=== PATIENT | male | born 1965 | race Caucasian/White ===

== ENCOUNTER → 2019-08-21 12:49 | Outpatient (BNVA) | payer MEDICAID, SELFPAY | PROVIDERS: Family Provider Nurse Practitioner Family; Visit Provider Nurse Practitioner | DX: F20.89 Other schizophrenia (principal) | CPT/HCPCS: 99213 ==

== ENCOUNTER → 2019-11-13 08:17 | Outpatient (BNVA) | payer MEDICAID, SELFPAY | PROVIDERS: Family Provider Nurse Practitioner Family; Visit Provider Nurse Practitioner | DX: F20.89 Other schizophrenia (principal) | CPT/HCPCS: 99214 ==

== ENCOUNTER → 2020-02-05 07:52 | Outpatient (BNVA) | payer MEDICAID, SELFPAY | PROVIDERS: Family Provider Nurse Practitioner Family; Visit Provider Nurse Practitioner | DX: F20.89 Other schizophrenia (principal) | CPT/HCPCS: 99214 ==

== ENCOUNTER 2020-03-23 17:05 | Inpatient (IN) | payer MEDICAID, SELFPAY ==
[2020-03-23] VITALS (13 sets, daily range): BP systolic 102–159; BP diastolic 61–111; PULSE 85–106; RESP 16–41; TEMP 36.6–37; O2SAT 90–99; BMI 32.1
--- NOTE | 2020-03-23 17:10 | XRR_ITS ---
PROCEDURE INFORMATION: Exam: XR Chest, 1 View Exam date and time: 03/23/2020 5:12 PM Age: 54 years old Clinical indication: Other: Od; Additional info: Overdose TECHNIQUE: Imaging protocol: XR of the chest Views: 1 view. COMPARISON: CR Chest 1 [place] [id number] 03/19/2017 1:40 PM FINDINGS: Lungs: Unremarkable. No consolidation. Unchanged mild basilar fibrosis. Pleural space: Unremarkable. No pleural effusion. No pneumothorax. Heart/Mediastinum: Unchanged mild cardiomegaly. Bones/joints: No acute abnormality. XR/XR chest 1V portable [id number] IMPRESSION: No acute findings.
--- NOTE | 2020-03-23 17:11 | ECG_ITS ---
[facility] Test Date: 2020-03-23 Pat Name: Ishan Brower Department: Room: Gender: Male Title I Teacher: : 1965 Requested By: Ghazal Henderson Order Number: [id number] José Luis MD: Rosaura Wick M.D. Measurements Intervals [place] Rate: 103 P: 57 DC: 140 QRS: 52 QRSD: 91 T: 1 QT: 342 QTc: 450 Interpretive Statements SINUS TACHYCARDIA POSSIBLE LEFT ATRIAL ENLARGEMENT [-0.1mV P WAVE IN V1/V2] POSSIBLE RIGHT VENTRICULAR CONDUCTION DELAY [RSR (QR) IN V1/V2] MODERATE ST DEPRESSION [0.05+ mV ST DEPRESSION] Compared to ECG 02/13/2017 04:04:58 ST (T wave) deviation now present Sinus bradycardia no longer present Sinus arrhythmia no longer present Left posterior fascicular block no longer present Electronically Signed On 03-23-2020 20:55:22 CDT by Rosaura Wick M.D. [id number] f
[2020-03-23 17:31] LABS: ABG PCO2 29.8 mmHg (35-45); ABG PH Result 7.45 (7.35-7.45); Alveolar-Arterial Oxygen Gradi 5.4 mmHg (5-10); Arterial Blood Gas Hematocrit 47.6 % (42-52); Base Excess ABG -1.9 mmol/L (-2.0-2.0); Blood Gas Allen Test Pos; Blood Gas Operator Identificat MONRO; Blood Gas Sample Site Radial, right; Blood Gas Sample Type Arterial; Carboxyhemoglobin 0.9 %THgb (0.4-20.1); HCO3 ABG 20.8 mmol/L (22-26); Ionized Calcium Level - ABG 1.2 mmol/L (1.1-1.4); Methemoglobin 0.7 % (0.4-1.5); Oxygen Device ROOM AIR; Oxygen Saturation ABG 95.5; PO2 ABG 69.3 mmHg (80.0-100.0); Potassium Level - ABG 3.1 mmol/L (3.5-5.0); Total Hemoglobin 15.5 g/dL (14-18)
--- NOTE | 2020-03-23 17:35 | ED_ITS ---
HPI - Overdose General: Chief Complaint: Overdose Stated Complaint: OVERDOSE Time Seen by Provider: 03/23/20 17:06 Source: patient and EMS Mode of arrival: EMS Limitations: no limitations History of Present Illness: HPI Narrative: Mr. Fox is a 54-year-old male who comes in after family called EMS because he was somnolent. Patient admits to taking 20 0.5 mg clonazepam's last night and 30 0.5 mg Klonopin tablets this morning. Patient is adamant he did not do this to hurt himself or kill himself he was solely trying to get high. Patient denies any other ingestions of any of his other medications. He states he is done this several times before and EMS confirms the family states he has done this before. Patient states he otherwise feels fine and has no complaints. Review of Systems Const: Denies: fever(s), chills, body aches, fatigue, malaise or diaphoresis Eyes: Denies: change in vision, blurry vision, photophobia, eye discomfort, eye discharge or eye redness ENMT: Denies: throat pain, odynophagia, hoarseness, swelling of lips/tongue, ear or mastoid pain, ear discharge, change in hearing or nasal discharge Card: Denies: chest pain, palpitations, irregular heart rhythm, edema, lightheadedness, syncope, pre-syncope, dyspnea on exertion or orthopnea Resp: Denies: dyspnea, productive cough, non-productive cough, wheezing, hemoptysis or chest congestion GI: Denies: abdominal pain, nausea, vomiting, hematemesis, coffee ground emesis, heartburn, diarrhea, constipation, GI cramping, hematochezia or melena : Denies: flank pain, dysuria, urinary frequency, urinary urgency or hematuria Musc: Denies: neck pain, back pain, extremity pain, extremity swelling, joint pain, joint swelling, joint redness, joint warmth or joint stiffness Skin/Breast: Denies: rash, pruritus, erythema or skin tenderness Neuro: Denies: headache(s), numbness in extremities, weakness in extremities, sensory changes, lack of coordination, difficulty walking, dizziness, vertigo, confusion, Slurred speech present or seizure-like activity Ezio/Lymph: Denies: easy bruising, easy bleeding, petechiae, purpura or enlarged lymph nodes All/Imm: Denies: urticaria, throat swelling, tongue swelling, facial swelling or acute wheezing PFSH ED PFSH: Medical History (Updated 03/23/20 @ 19:50 by Ghazal Bruce) Drug overdose Dyslipidemia Hypertension Other schizophrenia Surgical History (Updated 03/23/20 @ 19:42 by Renée Estrada MD) No pertinent past surgical history Family History (Updated 03/23/20 @ 19:43 by Renée Estrada MD) Other No pertinent family history Social History (Updated 03/23/20 @ 19:44 by Renée Estrada MD) Smoking and tobacco status: never smoked Alcohol intake: current Alcohol type: beer Alcohol use comment: 6 beers a week Substance/Drug Use: never Lives independently: Yes Housing: House Physical Exam Const: COMMON NORMALS: no acute distress, patient oriented x3, no limitations, healthy appearing and well nourished GENERAL APPEARANCE: cooperative, well kempt and well developed HENMT: COMMON NORMALS: normocephalic, atraumatic, external ears normal, EAC's normal and Normal external nose present HEAD & SCALP: normal to inspection, normocephalic and atraumatic FACE & SINUS: normal facial exam and face symmetric NOSE: Normal external nose present and Normal nares present EXTERNAL EAR: Yes external ears normal EXTERNAL AUDITORY CANAL: EAC's normal MOUTH: Normal oral and palatal mucosa present, lip normal and tongue normal Eye: COMMON NORMALS: Equal, round and reactive pupils present and conjunctivae normal GENERAL EYE: appearance normal, both eyes and all related structures ALIGNMENT: Yes alignment normal PERIORBITAL: periorbital findings normal EYELID: eyelids normal CONJUNCTIVA: Yes conjunctivae normal SCLERA: scle addi normal PUPIL: Yes Equal, round and reactive pupils present Neck/C-Spine: COMMON NORMALS: full ROM, no lymphadenopathy, supple, no meningeal signs and no JVD GENERAL: Yes normal visual inspection and Yes trachea midline Chest: COMMONS NORMALS: normal inspection of the chest and normal palpation of entire chest wall Resp: COMMON NORMALS: No retractions, No use of accessory muscles and clear to auscultation bilaterally EFFORT & INSPECTION: Yes able to speak in complete sentences, Yes symmetric chest movement and Yes tachypneic AUSCULTATION: clear to auscultation bilaterally, no crackles, no rales, no rhonchi and no wheezes Cardio: COMMON NORMALS: no JVD, regular rate, regular rhythm, S1 normal heart sound present and S2 normal heart sound present RATE: regular rate RHYTHM: regular rhythm HEART SOUNDS: S1 normal heart sound present, S2 normal heart sound present, no click, no gallops, no murmurs, no rubs and abnormal split S2 GI: COMMON NORMALS: Soft to palpation and No hepatosplenomegaly present PALPATION: Yes Soft to palpation, No Tenderness to palpation present (GI), No Guarding due to palpation present (GI), No Rigid due to palpation, Yes No hepatosplenomegaly present, No Hernia present, No Palpable mass present and No Pulsatile mass present : COMMON NORMALS: Yes no CVA tenderness BLADDER/KIDNEY EXAM: Yes no CVA tenderness Back/Pelvis: COMMON NORMALS: no CVA tenderness, thoracic and lumbar spine normal to inspection, no thoracic nor lumbar tenderness and thoraco-lumbar ROM normal Extremity: COMMON NORMALS: normal to inspection, full ROM, capillary refill normal, no joint enlargement, no clubbing, cyanosis or edema and no calf tenderness Neuro: COMMON NORMALS: patient oriented x3, CN's II-XII intact bilaterally, moves all extremities, no focal motor deficits and no sensory deficits noted MENINGEAL SIGNS: Yes no meningeal signs SPEECH: speech normal Psych: COMMON NORMALS: mental status grossly normal, Normal thought process present, cooperative, normal affect, speech normal and activity/motor behavior normal APPEARANCE: Yes well kempt SPEECH: Yes normal speech THOUGHT PROCESS: Normal thought process present Skin: COMMON NORMALS: no rashes or lesions noted, turgor normal, no jaundice, no petechiae and no mottling GENERAL SKIN EXAM: no rashes or lesions noted and turgor normal Course Vital Signs: Vital signs: Vital Signs Temperature 98.6 F 03/23/20 17:06 Pulse Rate 103 H 03/23/20 19:08 Respiratory Rate 26 H 03/23/20 19:08 Blood Pressure 109/82 03/23/20 19:08 Pulse Oximetry 95 03/23/20 19:08 MDM - Overdose MDM Narrative: Medical decision making narrative: Mr. Brower is a nice 54-year-old male who comes in after a overdose intentionally to intoxicate himself. Patient has developed rhabdomyolysis from this. His kidney function is already being affected. Given a bolus the patient with IV fluids as well as place a Cheng catheter to monitor strict intake and output. The case was reviewed with Dr. Estrada and he agrees to admit for further evaluation and care in the ICU Lab Data: Attestation: I reviewed the patient's lab results. Labs: Lab Results 03/23/20 03/23/20 03/23/20 Range/Units 16:09 16:09 16:09 WBC 14.8 H (4.0-10.0) 10^3/ uL RBC 4.50 (4.1-5.3) 10^6/u L Hgb 15.5 (11.7-16.6) g/dL Hct 44.3 (42.0-52.0) % MCV 98.4 H (80-94) fL MCH 34.4 H (28.0-34.0) pg MCHC 35.0 (30.0-36.0) g/dL RDW 11.9 L (12.1-15.1) % Plt Count 252 (130-400) 10^3/c mm MPV 10.8 H (7.4-10.4) fL Neut % (Auto) 85.5 % Lymph % (Auto) 5.3 % Schleicher % (Auto) 8.5 % Eos % (Auto) 0.1 % Baso % (Auto) 0.1 % Neut # (Auto) 12.64 H (1.8-7.7) 10^3/u L Lymph # (Auto) 0.8 (0.8-4.8) 10^3/u L Schleicher # (Auto) 1.3 H (0.2-0.9) 10^3/u L Eos # (Auto) 0.0 (0.0-0.8) 10^3/u L Baso # (Auto) 0.0 (0.0-0.1) 10^3/u L Nucleated RBC % (a uto) 0 % Nucleated RBCs # 0.0 /100WBC PT 14.30 (12.1-14.9) SECO NDS INR 1.08 (0.8-1.2) Specimen Type Sample Site ABG pH (7.35-7.45) ABG pCO2 (35-45) mmHg ABG pO2 (80.0-100.0) mmH g ABG HCO3 (22-26) mmol/L ABG O2 Saturation ABG Base Excess (-2.0-2.0) mmol/ L Jose Test A-a O2 Gradient (5-10) mmHg Hematocrit (42-52) % Hgb O2 Saturation (95-100) % Carboxyhemoglobin (0.4-20.1) %THgb Methemoglobin (0.4-1.5) % Total Hemoglobin (14-18) g/dL Ionized Calcium (1.1-1.4) mmol/L O2 Delivery Device FiO2 % Cad Librarian ID Sodium 136 (136-145) mmol/L Potassium 3.3 L (3.5-5.1) mmol/L Chloride 98 (98-107) mmol/L Carbon Dioxide 16 L (22-29) mmol/L Anion Gap 25.3 H (5-19) BUN 9 (6-20) mg/dL Creatinine 1.7 H (0.7-1.2) mg/dL GFR Calculation 41.9 L (90-130) mL/min Glucose 81 (65-115) mg/dL Calculated Osmolal ity 277 L (285-295) mOsm/k g Lactic Acid (0.5-2.2) mmol/L Calcium 9.3 (8.5-10.5) mg/dL Magnesium 1.9 (1.7-2.3) mg/dL Total Bilirubin 1.2 (0.15-1.2) mg/dL AST 122 H (0-40) U/L ALT 70 H (0-41) U/L Alkaline Phosphata se 136 H (40-130) IU/L Ammonia (16-60) umol/L Creatine Kinase 9792 H* (39-308) U/L Troponin T Baselin e (0-15) ng/L Total Protein 7.3 (6.6-8.7) g/dL Albumin 4.2 (3.5-5.2) g/dL Globulin 3.1 (1.3-4.6) g/dL TSH 1.63 (0.27-4.20) uIU/ mL Urine Color (Yellow) Urine Appearance (CLEAR) Urine pH (5-7) Ur Specific Gravit y (1.005-1.030) Urine Protein (Negative) Urine Glucose (UA) (Normal) Urine Ketones (Negative) Urine Blood (Negative) Urine Nitrate (Negative) Urine Bilirubin (NEGATIVE) Urine Urobilinogen (Negative) mg/dL Ur Leukocyte Shira ase (Negative) Urine RBC (0-2) /hpf Urine WBC (0-5) /hpf Ur Squamous Epith Cells (0-5) Amorphous Sediment Urine Bacteria (NONE) Hyaline Casts Fine Granular Cast s /lpf Urine Mucus Salicylates < 0.3 L (3-10) mg/dL Urine Opiates Scre en (Negative) ng/mL Acetaminophen < 5.0 L (10-30) ug/mL Ur Barbiturates Sc reen (Negative) ng/mL Phenytoin (10-20) ug/mL Valproic Acid (50-100) ug/mL Carbamazepine (4.0-12.0) ug/mL Ur Phencyclidine S crn (Negative) ng/mL Ur Amphetamines Sc reen (Negative) ng/mL U Benzodiazepines Scrn (Negative) ng/mL [place] (0.6-1.2) mmol/L Urine Cocaine Scre en (Negative) ng/mL U Marijuana (THC) Screen (Negative) ng/mL Ethyl Alcohol < 10 (0-10) mg/dL Serum Ketones Negative (Negative) 03/23/20 03/23/20 03/23/20 Range/Units 16:09 17:18 18:00 WBC (4.0-10.0) 10^3/ uL RBC (4.1-5.3) 10^6/u L Hgb (11.7-16.6) g/dL Hct (42.0-52.0) % MCV (80-94) fL MCH (28.0-34.0) pg MCHC (30.0-36.0) g/dL RDW (12.1-15.1) % Plt Count (130-400) 10^3/c mm MPV (7.4-10.4) fL Neut % (Auto) % Lymph % (Auto) % Schleicher % (Auto) % Eos % (Auto) % Baso % (Auto) % Neut # (Auto) (1.8-7.7) 10^3/u L Lymph # (Auto) (0.8-4.8) 10^3/u L Schleicher # (Auto) (0.2-0.9) 10^3/u L Eos # (Auto) (0.0-0.8) 10^3/u L Baso # (Auto) (0.0-0.1) 10^3/u L Nucleated RBC % (a uto) % Nucleated RBCs # /100WBC PT (12.1-14.9) SECO NDS INR (0.8-1.2) Specimen Type Arterial Sample Site Radial, right ABG pH 7.45 (7.35-7.45) ABG pCO2 29.8 L (35-45) mmHg ABG pO2 69.3 L (80.0-100.0) mmH g ABG HCO3 20.8 L (22-26) mmol/L ABG O2 Saturation 95.5 ABG Base Excess -1.9 (-2.0-2.0) mmol/ L Jose Test Pos A-a O2 Gradient 5.4 (5-10) mmHg Hematocrit 47.6 (42-52) % Hgb O2 Saturation 94.0 L (95-100) % Carboxyhemoglobin 0.9 (0.4-20.1) %THgb Methemoglobin 0.7 (0.4-1.5) % Total Hemoglobin 15.5 (14-18) g/dL Ionized Calcium 1.2 (1.1-1.4) mmol/L O2 Delivery Device Room air FiO2 21.0 % Cad Librarian ID [place] Sodium 140.0 (136-145) mmol/L Potassium 3.1 L (3.5-5.1) mmol/L Chloride (98-107) mmol/L Carbon Dioxide (22-29) mmol/L Anion Gap (5-19) BUN (6-20) mg/dL Creatinine (0.7-1.2) mg/dL GFR Calculation (90-130) mL/min Glucose 101.0 (65-115) mg/dL Calculated Osmolal ity (285-295) mOsm/k g Lactic Acid (0.5-2.2) mmol/L Calcium (8.5-10.5) mg/dL Magnesium (1.7-2.3) mg/dL Total Bilirubin (0.15-1.2) mg/dL AST (0-40) U/L ALT (0-41) U/L Alkaline Phosphata se (40-130) IU/L Ammonia (16-60) umol/L Creatine Kinase (39-308) U/L Troponin T Baselin e 46 H (0-15) ng/L Total Protein (6.6-8.7) g/dL Albumin (3.5-5.2) g/dL Globulin (1.3-4.6) g/dL TSH (0.27-4.20) uIU/ mL Urine Color (Yellow) Urine Appearance (CLEAR) Urine pH (5-7) Ur Specific Gravit y (1.005-1.030) Urine Protein (Negative) Urine Glucose (UA) (Normal) Urine Ketones (Negative) Urine Blood (Negative) Urine Nitrate (Negative) Urine Bilirubin (NEGATIVE) Urine Urobilinogen (Negative) mg/dL Ur Leukocyte Hsira ase (Negative) Urine RBC (0-2) /hpf Urine WBC (0-5) /hpf Ur Squamous Epith Cells (0-5) Amorphous Sediment Urine Bacteria (NONE) Hyaline Casts Fine Granular Cast s /lpf Urine Mucus Salicylates (3-10) mg/dL Urine Opiates Scre en Negative (Negative) ng/mL Acetaminophen (10-30) ug/mL Ur Barbiturates Sc reen Negative (Negative) ng/mL Phenytoin (10-20) ug/mL Valproic Acid (50-100) ug/mL Carbamazepine (4.0-12.0) ug/mL Ur Phencyclidine S crn Negative (Negative) ng/mL Ur Amphetamines Sc reen Negative (Negative) ng/mL U Benzodiazepines Scrn Positive H (Negative) ng/mL [place] (0.6-1.2) mmol/L Urine Cocaine Scre en Negative (Negative) ng/mL U Marijuana (THC) Screen Negative (Negative) ng/mL Ethyl Alcohol (0-10) mg/dL Serum Ketones (Negative) 03/23/20 03/23/20 03/23/20 Range/Units 18:00 18:06 18:06 WBC (4.0-10.0) 10^3/ uL RBC (4.1-5.3) 10^6/u L Hgb (11.7-16.6) g/dL Hct (42.0-52.0) % MCV (80-94) fL MCH (28.0-34.0) pg MCHC (30.0-36.0) g/dL RDW (12.1-15.1) % Plt Count (130-400) 10^3/c mm MPV (7.4-10.4) fL Neut % (Auto) % Lymph % (Auto) % Schleicher % (Auto) % Eos % (Auto) % Baso % (Auto) % Neut # (Auto) (1.8-7.7) 10^3/u L Lymph # (Auto) (0.8-4.8) 10^3/u L Schleicher # (Auto) (0.2-0.9) 10^3/u L Eos # (Auto) (0.0-0.8) 10^3/u L Baso # (Auto) (0.0-0.1) 10^3/u L Nucleated RBC % (a uto) % Nucleated RBCs # /100WBC PT (12.1-14.9) SECO NDS INR (0.8-1.2) Specimen Type Sample Site ABG pH (7.35-7.45) ABG pCO2 (35-45) mmHg ABG pO2 (80.0-100.0) mmH g ABG HCO3 (22-26) mmol/L ABG O2 Saturation ABG Base Excess (-2.0-2.0) mmol/ L Jose Test A-a O2 Gradient (5-10) mmHg Hematocrit (42-52) % Hgb O2 Saturation (95-100) % Carboxyhemoglobin (0.4-20.1) %THgb Methemoglobin (0.4-1.5) % Total Hemoglobin (14-18) g/dL Ionized Calcium (1.1-1.4) mmol/L O2 Delivery Device FiO2 % Cad Librarian ID Sodium (136-145) mmol/L Potassium (3.5-5.1) mmol/L Chloride (98-107) mmol/L Carbon Dioxide (22-29) mmol/L Anion Gap (5-19) BUN (6-20) mg/dL Creatinine (0.7-1.2) mg/dL GFR Calculation (90-130) mL/min Glucose (65-115) mg/dL Calculated Osmolal ity (285-295) mOsm/k g Lactic Acid (0.5-2.2) mmol/L Calcium (8.5-10.5) mg/dL Magnesium (1.7-2.3) mg/dL Total Bilirubin (0.15-1.2) mg/dL AST (0-40) U/L ALT (0-41) U/L Alkaline Phosphata se (40-130) IU/L Ammonia 38 (16-60) umol/L Creatine Kinase (39-308) U/L Troponin T Baselin e (0-15) ng/L Total Protein (6.6-8.7) g/dL Albumin (3.5-5.2) g/dL Globulin (1.3-4.6) g/dL TSH (0.27-4.20) uIU/ mL Urine Color Dark yellow (Yellow) Urine Appearance Clear (CLEAR) Urine pH 5 (5-7) Ur Specific Gravit y 1.010 (1.005-1.030) Urine Protein 1+ H (Negative) Urine Glucose (UA) Norm (Normal) Urine Ketones 1+ H (Negative) Urine Blood 3+ H (Negative) Urine Nitrate Negative (Negative) Urine Bilirubin Neg (NEGATIVE) Urine Urobilinogen Norm (Negative) mg/dL Ur Leukocyte Shira ase Negative (Negative) Urine RBC None (0-2) /hpf Urine WBC None (0-5) /hpf Ur Squamous Epith Cells Rare (0-5) Amorphous Sediment Not Reportable Urine Bacteria Trace (NONE) Hyaline Casts 5-10 H Fine Granular Cast s 5-10 H /lpf Urine Mucus 1+ Salicylates (3-10) mg/dL Urine Opiates Scre en (Negative) ng/mL Acetaminophen (10-30) ug/mL Ur Barbiturates Sc reen (Negative) ng/mL Phenytoin < 0.8 L (10-20) ug/mL Valproic Acid < 2.8 L (50-100) ug/mL Carbamazepine < 2.0 L (4.0-12.0) ug/mL Ur Phencyclidine S crn (Negative) ng/mL Ur Amphetamines Sc reen (Negative) ng/mL U Benzodiazepines Scrn (Negative) ng/mL [place] < 0.1 L (0.6-1.2) mmol/L Urine Cocaine Scre en (Negative) ng/mL U Marijuana (THC) Screen (Negative) ng/mL Ethyl Alcohol (0-10) mg/dL Serum Ketones (Negative) 03/23/20 Range/Units 18:06 WBC (4.0-10.0) 10^3/ uL RBC (4.1-5.3) 10^6/u L Hgb (11.7-16.6) g/dL Hct (42.0-52.0) % MCV (80-94) fL MCH (28.0-34.0) pg MCHC (30.0-36.0) g/dL RDW (12.1-15.1) % Plt Count (130-400) 10^3/c mm MPV (7.4-10.4) fL Neut % (Auto) % Lymph % (Auto) % Schleicher % (Auto) % Eos % (Auto) % Baso % (Auto) % Neut # (Auto) (1.8-7.7) 10^3/u L Lymph # (Auto) (0.8-4.8) 10^3/u L Schleicher # (Auto) (0.2-0.9) 10^3/u L Eos # (Auto) (0.0-0.8) 10^3/u L Baso # (Auto) (0.0-0.1) 10^3/u L Nucleated RBC % (a uto) % Nucleated RBCs # /100WBC PT (12.1-14.9) SECO NDS INR (0.8-1.2) Specimen Type Sample Site ABG pH (7.35-7.45) ABG pCO2 (35-45) mmHg ABG pO2 (80.0-100.0) mmH g ABG HCO3 (22-26) mmol/L ABG O2 Saturation ABG Base Excess (-2.0-2.0) mmol/ L Jose Test A-a O2 Gradient (5-10) mmHg Hematocrit (42-52) % Hgb O2 Saturation (95-100) % Carboxyhemoglobin (0.4-20.1) %THgb Methemoglobin (0.4-1.5) % Total Hemoglobin (14-18) g/dL Ionized Calcium (1.1-1.4) mmol/L O2 Delivery Device FiO2 % Cad Librarian ID Sodium (136-145) mmol/L Potassium (3.5-5.1) mmol/L Chloride (98-107) mmol/L Carbon Dioxide (22-29) mmol/L Anion Gap (5-19) BUN (6-20) mg/dL Creatinine (0.7-1.2) mg/dL GFR Calculation (90-130) mL/min Glucose (65-115) mg/dL Calculated Osmolal ity (285-295) mOsm/k g Lactic Acid 2.5 H (0.5-2.2) mmol/L Calcium (8.5-10.5) mg/dL Magnesium (1.7-2.3) mg/dL Total Bilirubin (0.15-1.2) mg/dL AST (0-40) U/L ALT (0-41) U/L Alkaline Phosphata se (40-130) IU/L Ammonia (16-60) umol/L Creatine Kinase (39-308) U/L Troponin T Baselin e (0-15) ng/L Total Protein (6.6-8.7) g/dL Albumin (3.5-5.2) g/dL Globulin (1.3-4.6) g/dL TSH (0.27-4.20) uIU/ mL Urine Color (Yellow) Urine Appearance (CLEAR) Urine pH (5-7) Ur Specific Gravit y (1.005-1.030) Urine Protein (Negative) Urine Glucose (UA) (Normal) Urine Ketones (Negative) Urine Blood (Negative) Urine Nitrate (Negative) Urine Bilirubin (NEGATIVE) Urine Urobilinogen (Negative) mg/dL Ur Leukocyte Shira ase (Negative) Urine RBC (0-2) /hpf Urine WBC (0-5) /hpf Ur Squamous Epith Cells (0-5) Amorphous Sediment Urine Bacteria (NONE) Hyaline Casts Fine Granular Cast s /lpf Urine Mucus Salicylates (3-10) mg/dL Urine Opiates Scre en (Negative) ng/mL Acetaminophen (10-30) ug/mL Ur Barbiturates Sc reen (Negative) ng/mL Phenytoin (10-20) ug/mL Valproic Acid (50-100) ug/mL Carbamazepine (4.0-12.0) ug/mL Ur Phencyclidine S crn (Negative) ng/mL Ur Amphetamines Sc reen (Negative) ng/mL U Benzodiazepines Scrn (Negative) ng/mL [place] (0.6-1.2) mmol/L Urine Cocaine Scre en (Negative) ng/mL U Marijuana (THC) Screen (Negative) ng/mL Ethyl Alcohol (0-10) mg/dL Serum Ketones (Negative) Imaging Data^: CXR: Attestation: I personally reviewed and interpreted this imaging study as follows: My impression: No acute cardiopulmonary findings. EKG Data^: EKG 1: Attestation: I personally reviewed and interpreted this EKG as follows: EKG interpretation date: 03/23/20 Interpretation: Normal sinus rhythm at 103 beats a minute, no blocks, normal intervals, normal axis, nonspecific ST and T wave changes. EKG 2: Attestation: I personally reviewed and interpreted this EKG as follows: EKG interpretation date: 03/23/20 EKG interpretation time: 19:45 Interpretation: Normal sinus rhythm at 96 beats a minute, normal axis, no blocks, normal intervals, no acute ST or T wave changes. Discharge Plan Discharge Patient Disposition: Admitted As Inpatient Clinical Impression: Rhabdomyolysis, Drug overdose Condition: Stable Prescriptions: No Action aspirin [Aspirin Childrens] 81 mg tablet,chewable 81 mg PO DAILY RF: 0 fluticasone propionate [Flonase Allergy Relief] 50 mcg/actuation spray,suspension 2 spray INTRANASAL DAILY RF: 0 clonazepam 0.5 mg tablet 0.5 mg PO TID PRN (Reason: anxiety) Qty: 90 RF: 2 olanzapine 15 mg tablet 15 mg PO BID Qty: 60 RF: 2 ProAir HFA 90 mcg/actuation Hfa Aerosol Inhaler 2 puff INHALATION Q6H PRN (Reason: Shortness Of Breath) RF: 0 Cholesterol Med See Rx Instructions .ROUTE .COMPLEX RF: 0 [place] Inhaler See Rx Instructions .ROUTE .COMPLEX RF: 0 folic acid 1 tab PO DAILY RF: 0 lisinopril 1 tab PO DAILY RF: 0 sertraline 100 mg tablet 150 mg PO DAILY RF: 0 Lunesta 3 mg tablet 3 mg PO BEDTIME RF: 0 Coding Level of Care Code ED Social Work Job Titles for Chg Fwd Exam Comprehensive
[2020-03-23 17:40] LABS: Basophils % 0.1 %; Eosinophils % 0.1 %; Hematocrit 44.3 % (42.0-52.0); Hemoglobin 15.5 g/dL (11.7-16.6); Lymphocytes # 0.8 10^3/uL (0.8-4.8); Lymphocytes % 5.3 %; Mean Corpuscular Hemoglobin 34.4 pg (28.0-34.0); Mean Corpuscular Volume 98.4 fL (80-94); Mean Platelet Volume 10.8 fL (7.4-10.4); Monocytes # 1.3 10^3/uL (0.2-0.9); Monocytes % 8.5 %; Neutrophils # 12.64 10^3/uL (1.8-7.7); Neutrophils % 85.5 %; Nucleated Red Blood Cells % 0 %; Platelet Count 252 10^3/cmm (130-400); Red Cell Distribution Width 11.9 % (12.1-15.1); White Blood Count 14.8 10^3/uL (4.0-10.0)
[2020-03-23 17:54] LABS: INR 1.08 (0.8-1.2)
[2020-03-23 18:07] LABS: Troponin(5th) Baseline 46 ng/L (0-15)
[2020-03-23 18:11] LABS: Ketone (Acetest) Serum Negative (Negative)
[2020-03-23 18:31] LABS: Alanine Aminotransferase 70 U/L (0-41); Albumin Level 4.2 g/dL (3.5-5.2); Alkaline Phosphatase 136 IU/L (40-130); Anion Gap 25.3 (5-19); Aspartate Amino Transferase 122 U/L (0-40); Blood Urea Nitrogen 9 mg/dL (6-20); Calcium 9.3 mg/dL (8.5-10.5); Carbon Dioxide 16 mmol/L (22-29); Chloride 98 mmol/L (98-107); Globulin 3.1 g/dL (1.3-4.6); Glomerular Filtration Rate 41.9 mL/min (90-130); Glucose 81 mg/dL (65-115); Magnesium 1.9 mg/dL (1.7-2.3); Osmolality Calculated 277 mOsm/kg (285-295); Potassium 3.3 mmol/L (3.5-5.1); Sodium 136 mmol/L (136-145); Thyroid Stimulating Hormone 1.63 uIU/mL (0.27-4.20); Total Bilirubin 1.2 mg/dL (0.15-1.2); Total Protein 7.3 g/dL (6.6-8.7)
[2020-03-23 18:32] LABS: Ammonia 38 umol/L (16-60)
[2020-03-23 18:33] LABS: Lactic Sepsis W/Reflex 2.5 mmol/L (0.5-2.2)
[2020-03-23 18:34] LABS: Acetaminophen < 5.0 ug/mL (10-30); Alcohol Level < 10 mg/dL (0-10); Salicylate < 0.3 mg/dL (3-10)
[2020-03-23 18:42] LABS: Valproic Acid Level < 2.8 ug/mL (50-100)
[2020-03-23 18:43] LABS: Carbamazepine Tegretol < 2.0 ug/mL (4.0-12.0); Lithium < 0.1 mmol/L (0.6-1.2); Phenytoin Dilantin < 0.8 ug/mL (10-20)
[2020-03-23 18:46] LABS: Creatine Phosphokinase 9792 U/L (39-308)
[2020-03-23 18:50] LABS: Amphetamines Screen Urine Negative (Negative); Barbiturates Screen Urine Negative (Negative); Benzodiazepines Screen Urine Positive (Negative); Cocaine Screen Urine Negative (Negative); Opiate Screen Urine Negative (Negative); PCP Screen Urine Negative (Negative); THC Screen Urine Negative (Negative)
[2020-03-23 18:52] LABS: Bilirubin Urine Neg (NEGATIVE); Blood Urine 3+ (Negative); Glucose Urine UA Norm (Normal); Ketones Urine 1+ (Negative); Leukocyte Esterase Urine Negative (Negative); Nitrate Urine Negative (Negative); Protein Urine 1+ (Negative); Urine Appearance Clear (CLEAR); Urine Color Dark Yellow (Yellow); Urobilinogen Urine Norm (Negative); pH Urine 5 (5-7)
[2020-03-23 18:53] LABS: Squamous Epithelial Cell Urine RARE (0-5)
[2020-03-23 18:54] LABS: Add Urine Culture? No; Bacteria Urine TRACE; Mucus Urine 1+
[2020-03-23] MEDS: sodium chloride 0.9% 1,000 ML 999 ML IV ×2 (19:10)
[2020-03-23] MEDS: sodium chloride 0.9% 1,000 ML 200 ML IV (19:10)
--- NOTE | 2020-03-23 19:11 | ECG_ITS ---
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 Measurements Intervals [place] Rate: 96 P: 78 OR: 150 QRS: 76 QRSD: 96 T: 51 QT: 342 QTc: 432 Interpretive Statements SINUS RHYTHM INCOMPLETE RIGHT BUNDLE BRANCH BLOCK [90+ ms QRS DURATION, TERMINAL R IN V1/V2, 40+ ms S IN I/aVL/V4/V5/V6] MINIMAL ST DEPRESSION [0.025+ mV ST DEPRESSION] Compared to ECG 03/23/2020 17:16:59 Incomplete right bundle-branch block now present Sinus tachycardia no longer present ST (T wave) deviation still present Electronically Signed On 03-25-2020 0:23:52 CDT by Rosaura Wick M.D. [id number]
--- NOTE | 2020-03-23 19:13 | P.HP_ITS ---
Providers/Chief Complaint Chief Complaint: OVERDOSE History of Present Illness Ishan Brower is a 54 year old male who carries history of hypertension, dyslipidemia, schizophrenia follows up with [facility] was sent in by his friend when he was found on the floor. Patient is stating that he wanted to feel better and took a lot of Klonopin tablets, he took 0.5 mg 20 tablets last night, 30 tablets in the morning, he was not suicidal. He lives alone, manages his daily activities on his own, cooks for himself, he also experienced one episode of diarrhea in the morning, patient is not able to recall what happened but knows that his friend came in to check on him today and he was found on the floor. He does not know exactly what time but thinks it was around noon. No recent fever, chills, chest pain, constipation but he is endorsing, shortness of breath especially at night. He has not noticed any seizure-like activities. Diagnostics in the ER revealed tachypnea, tachycardia, leukocytosis, high anion gap metabolic acidosis secondary to dehydration, rhabdomyolysis He has been getting fluid resuscitation in the ER, no active serotonin syndrome signs Patient not suicidal at the time my evaluation, oriented to time place person, GCS 6 Review of Systems Const: Reports: chills, body aches, change in appetite and fatigue; Denies: fever(s) Eyes: Denies: change in vision ENMT: Denies: throat pain Card: Reports: orthopnea; Denies: chest pain or swelling of feet/ankles Resp: Reports: dyspnea GI: Reports: diarrhea; Denies: abdominal pain, nausea, vomiting or constipation : Denies: flank pain Musc: Denies: neck pain Skin/Breast: Reports: lesions Neuro: Reports: confusion, behavioral changes and difficulty communicating thoughts Psych: Reports: anxiety, depression and irritability Endo: Denies: polyuria Ezio/Lymph: Denies: easy bruising All/Imm: Denies: urticaria Medications/Allergies Home Medications Medication Instructions Recorded Confirmed Last Taken Type aspirin 81 mg chewable tablet 81 mg PO DAILY 08/21/19 03/23/20 Unknown History fluticasone propionate 50 2 spray INTRANASAL DAILY 08/21/19 03/23/20 Unknown History mcg/actuation nasal spray,suspension clonazepam 0.5 mg tablet 0.5 mg PO TID PRN #90 tab 07/03/23/20 03/23/20 Rx olanzapine 15 mg tablet 15 mg PO BID #60 tab 02/05/20 03/23/20 03/23/20 Rx Cholesterol Med See Rx Instructions .ROUTE .COMPLEX 03/23/20 03/23/20 Unknown H istory Lunesta 3 mg PO BEDTIME 03/23/20 03/23/20 Unknown History [place] Inhaler See Rx Instructions .ROUTE .COMPLEX 03/23/20 03/23/20 Unknown History albuterol sulfate [ProAir HFA] 2 puff INHALATION Q6H PRN 03/23/20 03/23/20 Unknown History folic acid 1 tab PO DAILY 03/23/20 03/23/20 Unknown History lisinopril 1 tab PO DAILY 03/23/20 03/23/20 Unknown History sertraline 150 mg PO DAILY 03/23/20 03/23/20 Unknown History Allergies Allergy/AdvReac Type Severity Reaction Status Date / Time oxytetracycline Allergy Unknown Verified 08/21/19 12:57 [From Terramycin] Penicillins Allergy Unknown Verified 08/21/19 12:57 PFSH Acute PFSH: Medical History (Updated 03/23/20 @ 19:42 by Renée Estrada MD) Drug overdose Dyslipidemia Hypertension Other schizophrenia Surgical History (Updated 03/23/20 @ 19:42 by Renée Estrada MD) No pertinent past surgical history Family History (Updated 03/23/20 @ 19:43 by Renée Estrada MD) Other No pertinent family history Social History (Updated 03/23/20 @ 19:44 by Renée Estrada MD) Smoking and tobacco status: never smoked Alcohol intake: current Alcohol type: beer Alcohol use comment: 6 beers a week Substance/Drug Use: never Lives independently: Yes Housing: House Vitals/I&O/Wt Last Vital Signs Temp 98.6 F 03/23/20 17:06 Pulse 85 03/23/20 18:08 Resp 17 03/23/20 18:08 BP 102/61 03/23/20 18:08 Pulse Ox 99 03/23/20 18:11 03/23/20 03/23/20 03/23/20 06:59 14:59 22:59 Intake Total 0 / 0 Balance 0 / 0 Weight last 48 hrs Weight 95.708 kg Physical Exam Narrative: EXAM NARRATIVE: male, unkempt appearance Poor hygiene Poor dental hygiene No active signs of serotonin syndrome, No myoclonus, rigidity Patient is awake alert oriented x3 GCS 15 Reflexes equivocal S1, S2 sinus tachycardia, clinically dehydrated Abdomen soft nontender bowel sound present Neurologically no focal deficit Cognitive impairment Lower extremity poor hygiene, no active signs of edema gangrene ulcer No gross trauma or cranial nerve deficit identified Lungs are clear to auscultate Data : 03/23/20 16:09 03/23/20 16:09 A&P Assessment and plan (1) Drug overdose: Status: Acute (2) Hypokalemia: Status: Acute (3) High anion gap metabolic acidosis: Status: Acute (4) MILE (acute kidney injury): Status: Acute (5) Alcohol liver damage: Status: Acute Additional A&P Information Drug overdose Patient denying suicidal ideation Has history of schizophrenia and depression Patient took 50 tablets of Klonopin in the last 12 hours Monitor for signs of serotonin syndrome as he is already taking SSRIs along with benzodiazepines No fever or rigidity Clinically dehydrated Lactic acidemia secondary to hypotension Tachycardia and tachypnea secondary to dehydration and metabolic acidosis with respiratory compensation At the time my evaluation he was not tachypneic His tachypnea is an accurate response to his severe metabolic acidosis, We will follow-up with ABG No signs of sepsis, no source of infection High anion gap metabolic acidosis secondary to lactic acidemia Lactic acidemia secondary to dehydration and rhabdomyolysis Hypokalemia: Repleted Alcohol induced liver injury AST higher than ALT, patient is drinking beer every day Use thiamine and folic acid Rhabdomyolysis Fluid resuscitation, aggressive fluid management, monitor urine output, MILE secondary to dehydration and rhabdomyolysis Concentrated orange-colored urine Monitor for ATN Full code Regular diet DVT prophylaxis Heparin Attestations Medical Necessity Statement*: Patient will need monitoring in ICU because of drug overdose, monitoring for serotonin syndrome development, currently need aggressive fluid resuscitation for rhabdomyolysis, I am anticipating he will be discharged in less than 48 hours currently not suicidal Time Spent in Patient Care: (>than 50% of time spent in counselling and/or direct pt care on unit) . 50mins Coding Level of Care Code Acute Front Edger for g Fwd Diagnoses Drug overdose T50.901A Hypokalemia E87.6 High anion gap metabolic acidosis E87.2 MILE (acute kidney injury) N17.9 Alcohol liver damage K70.9
--- NOTE | 2020-03-23 19:46 | PC.NURSE ---
EKG done at 1945 and shown to ER doctor
[2020-03-23 19:52] LABS: ABG PCO2 30.6 mmHg (35-45); ABG PH Result 7.43 (7.35-7.45); Blood Gas Allen Test Pos; Blood Gas Sample Site Radial, right; Blood Gas Sample Type Arterial; HCO3 ABG 20.3 mmol/L (22-26); PO2 ABG 72.5 mmHg (80.0-100.0)
[2020-03-23 19:53] LABS: Troponin 5 2HR 49.36 ng/L (0-15); Troponin 5 2HR Delta 3.36 ABS# (0-10)
[2020-03-23 19:55] LABS: Reflex Lactate Order REFLEX LACTIC ORDERD
[2020-03-23] MEDS: potassium chloride ER 10 mEq Tablet 40 MEQ PO (21:08)
[2020-03-23] MEDS: heparin 5,000 unit/mL INJ 1 mL 5000 UNIT SUBCUT (21:08)
[2020-03-23] MEDS: sodium chloride 0.9% 1,000 ML 125 ML IV (21:09)
--- NOTE | 2020-03-23 21:36 | PC.NURSE ---
Admitted to ICU room 3 from ED via stretcher with Nurse at bedside. Resting comfortably, no reports of pain or discomfort. Dirt and leaves noted to body, bath given with warm bath wipes. Reports that he fell and was not able to get cleaned up. Awake, Alert, and Oriented to person, place, and time. Speech a little difficult to understand, no teeth noted in mouth. Rash noted to Right Axilla, reports that a tick was pulled off about 5 days ago by a friend and the rash came out after that. Notified Dr. Estrada of rash and tick bite 5 days ago.
[2020-03-24] VITALS (19 sets, daily range): BP systolic 100–156; BP diastolic 49–96; PULSE 53–93; RESP 0–45; TEMP 36.4–37.6; O2SAT 92–100
[2020-03-24 04:16] LABS: Basophils % 0.1 %; Eosinophils # 0.1 10^3/uL (0.0-0.8); Eosinophils % 0.6 %; Hematocrit 37.8 % (42.0-52.0); Hemoglobin 13.1 g/dL (11.7-16.6); Lymphocytes # 1.6 10^3/uL (0.8-4.8); Lymphocytes % 13.2 %; Mean Corpuscular HGB Conc 34.7 g/dL (30.0-36.0); Mean Corpuscular Hemoglobin 35.5 pg (28.0-34.0); Mean Corpuscular Volume 102.4 fL (80-94); Monocytes # 1.1 10^3/uL (0.2-0.9); Monocytes % 9.2 %; Neutrophils # 9.35 10^3/uL (1.8-7.7); Neutrophils % 76.4 %; Nucleated Red Blood Cells % 0 %; Platelet Count 178 10^3/cmm (130-400); Red Blood Count 3.69 10^6/uL (4.1-5.3); Red Cell Distribution Width 12.2 % (12.1-15.1); White Blood Count 12.2 10^3/uL (4.0-10.0)
[2020-03-24] MEDS: sodium chloride 0.9% 1,000 ML 125 ML IV ×3 (04:29→20:05)
[2020-03-24] MEDS: heparin 5,000 unit/mL INJ 1 mL 5000 UNIT SUBCUT ×3 (04:29→20:05)
[2020-03-24 04:37] LABS: Lactate (Lactic Acid level) 1.5 mmol/L (0.5-2.2)
[2020-03-24 04:39] LABS: Alanine Aminotransferase 89 U/L (0-41); Albumin Level 3.1 g/dL (3.5-5.2); Alkaline Phosphatase 102 IU/L (40-130); Anion Gap 13.7 (5-19); Aspartate Amino Transferase 368 U/L (0-40); Blood Urea Nitrogen 8 mg/dL (6-20); Calcium 7.9 mg/dL (8.5-10.5); Carbon Dioxide 18 mmol/L (22-29); Chloride 109 mmol/L (98-107); Globulin 2.9 g/dL (1.3-4.6); Glomerular Filtration Rate 69.2 mL/min (90-130); Glucose 80 mg/dL (65-115); Osmolality Calculated 279 mOsm/kg (285-295); Phosphorus 1.6 mg/dL (2.5-4.5); Potassium 3.7 mmol/L (3.5-5.1); Sodium 137 mmol/L (136-145); Total Bilirubin 1.2 mg/dL (0.15-1.2)
[2020-03-24] MEDS: multivitamin therapeutic Tablet 1 TAB PO (08:56)
[2020-03-24] MEDS: folic acid 1 mg Tablet PO (08:57)
[2020-03-24] MEDS: nicotine 14 mg Patch 1 PATCH TRANSDERMA (08:57)
--- NOTE | 2020-03-24 11:38 | P.PN_ITS ---
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 he is not sure exactly sure when, he took too many of his Klonopin pills, took 21 tablets, he was found on the floor, stated that he took these tablets because he wanted to feel better, has trouble recalling what exactly happened, but thinks that friend came in and checked up on him and he was found on the floor, he is not exactly sure if he took too many Zoloft pills, he denies taking more than prescribed olanzapine, denies taking more than prescribed Lunesta, denies any other drug use, denies alcohol use Vitals/I&O/Wt Last Vital Signs Temp 97.5 F L 03/24/20 08:00 Pulse 72 03/24/20 09:00 Resp 35 H 03/24/20 09:00 BP 126/76 03/24/20 09:00 Pulse Ox 98 03/24/20 09:00 03/23/20 03/24/20 03/24/20 22:59 06:59 14:59 Intake Total 1200 / 1200 1316.667 / 2516.667 160 / 160 Output Total 950 / 950 Balance 1200 / 1200 366.667 / 1566.667 160 / 160 Weight last 48 hrs Weight 95.708 kg Physical Exam Const: COMMON NORMALS: no acute distress and patient oriented x3 HENMT: COMMON NORMALS: normocephalic HEAD & SCALP: normocephalic Neck/C-Spine: COMMON NORMALS: no JVD Resp: COMMON NORMALS: normal respiratory effort, No retractions, No use of accessory muscles and clear to auscultation bilaterally AUSCULTATION: clear to auscultation bilaterally Cardio: COMMON NORMALS: no JVD, regular rate, regular rhythm, S1 normal heart sound present and S2 normal heart sound present RATE: regular rate RHYTHM: regular rhythm HEART SOUNDS: S1 normal heart sound present and S2 normal heart sound present GI: COMMON NORMALS: Normal to inspection, nondistended, normoactive bowel sounds present, Soft to palpation, non-tender, No hepatosplenomegaly present, no masses and no bruits PALPATION: Yes Soft to palpation and Yes No he patosplenomegaly present Extremity: COMMON NORMALS: capillary refill normal, no clubbing, cyanosis or edema, no calf tenderness and no pedal edema NARRATIVE EXTREMITY EXAM: Right shoulder bruise Neuro: COMMON NORMALS: patient oriented x3 Psych: COMMON NORMALS: mental status grossly normal Urinary Catheter Management^: Cheng: Cath Placed During This Visit: yes Reason for Continuing Indwelling Catheter: Accurate Measurement of Urinary Output in Critically Ill Patients Urinary Catheter Date of Insertion: 03/23/20 Urinary Catheter Time of Insertion: 19:17 Data : 03/24/20 03:56 03/24/20 03:56 A&P Assessment and plan (1) Drug overdose: -Klonopin, possibly Zoloft -This morning I spoke to poison control, they have been notified -Patient has rhabdomyolysis, CPK 6[address]47, UA negative for signs of UTI, chest x- ray negative for pneumonia, no complaints of chest pain, EKG no acute ST-T wave changes, does have right shoulder bruising, but thorough skin exam reveals no significant bruising, no pain complaints, UA does not show any blood, myoglobin pending -Lactic acid 2.5 -Transaminitis, AST 368, ALT 89 -Bicarb 20.3, pH 7.43 -Phosphorus 1.6, magnesium 1.9, calcium 7.9 -Minimal troponin elevation, baseline 46, 120-minute 49.36, delta 3.36 -Heart rate 96, DC interval 150 ms, QRS 96 ms, QTC 432 ms, minimal ST depressions V4 to V6 -Thus patient has rhabdomyolysis, transaminitis, electrolyte abnormalities, related to fall and Klonopin overdose Plan: -Admit to ICU -Neurochecks, telemetry monitoring, seizure precautions -Repeat blood work in the afternoon -Continue normal saline 125 cc an hour, bedrest, add sodium bicarb -Monitor vitals closely Status: Acute Qualifiers: Encounter type: initial encounter Injury intent: undetermined intent Qualified Code(s): T50.904A - Poisoning by unspecified drugs, medicaments and biological substances, undetermined, initial encounter (2) Hypokalemia: Status: Acute (3) High anion gap metabolic acidosis: Status: Acute (4) MILE (acute kidney injury): Status: Acute (5) Alcohol liver damage: Status: Acute (6) Transaminitis: Status: Acute (7) Rhabdomyolysis: Status: Acute Qualifiers: Rhabdomyolysis type: non-traumatic Qualified Code(s): M62.82 - Rhabdomyolysis (8) Hypocalcemia: Status: Acute (9) Fall: Status: Acute (10) NSTEMI (non-ST elevated myocardial infarction): -Likely type II NSTEMI, supply demand ischemia, related to fall, being f ound somnolent, rhabdo -We will repeat troponins, 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, 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, monitor for chest pain Status: Acute Additional A&P Information Drug overdose Patient denying suicidal ideation Has history of schizophrenia and depression Patient took 50 tablets of Klonopin in the last 12 hours Monitor for signs of serotonin syndrome as he is already taking SSRIs along with benzodiazepines No fever or rigidity Clinically dehydrated Lactic acidemia secondary to hypotension Tachycardia and tachypnea secondary to dehydration and metabolic acidosis with respiratory compensation At the time my evaluation he was not tachypneic His tachypnea is an accurate response to his severe metabolic acidosis, We will follow-up with ABG No signs of sepsis, no source of infection High anion gap metabolic acidosis secondary to lactic acidemia Lactic acidemia secondary to dehydration and rhabdomyolysis Hypokalemia: Repleted Alcohol induced liver injury AST higher than ALT, patient is drinking beer every day Use thiamine and folic acid Rhabdomyolysis Fluid resuscitation, aggressive fluid management, monitor urine output, MILE secondary to dehydration and rhabdomyolysis Concentrated orange-colored urine Monitor for ATN Full code Regular diet DVT prophylaxis Heparin Attestations Medical Necessity Statement*: Patient requires hospitalization, inpatient, greater than 2 midnights, ICU admission, for drug overdose, Klonopin overdose, rhabdomyolysis, transaminitis, acidemia, nstemi Coding Level of Care Code 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
--- NOTE | 2020-03-24 12:05 | ECG_ITS ---
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 Measurements Intervals [place] Rate: 75 P: 58 CA: 142 QRS: 56 QRSD: 90 T: 28 QT: 408 QTc: 458 Interpretive Statements SINUS RHYTHM Compared to ECG 03/23/2020 19:45:22 Incomplete right bundle-branch block no longer present ST (T wave) deviation no longer present Electronically Signed On 03-25-2020 0:18:23 CDT by Rosaura Wcik M.D. [id number]
[2020-03-24] MEDS: sodium bicarbonate 650 mg Tablet PO ×3 (12:30→20:05)
[2020-03-24 14:04] LABS: Alanine Aminotransferase 92 U/L (0-41); Albumin Level 3.2 g/dL (3.5-5.2); Alkaline Phosphatase 82 IU/L (40-130); Anion Gap 11.5 (5-19); Aspartate Amino Transferase 294 U/L (0-40); Blood Urea Nitrogen 8 mg/dL (6-20); Calcium 7.7 mg/dL (8.5-10.5); Carbon Dioxide 22 mmol/L (22-29); Chloride 106 mmol/L (98-107); Globulin 2.6 g/dL (1.3-4.6); Glomerular Filtration Rate 87.3 mL/min (90-130); Glucose 92 mg/dL (65-115); Magnesium 1.9 mg/dL (1.7-2.3); Osmolality Calculated 278 mOsm/kg (285-295); Phosphorus 1.9 mg/dL (2.5-4.5); Potassium 3.5 mmol/L (3.5-5.1); Sodium 136 mmol/L (136-145); Total Bilirubin 1.1 mg/dL (0.15-1.2); Total Protein 5.8 g/dL (6.6-8.7); Uric Acid 7.1 mg/dL (3.4-7.0)
[2020-03-24 14:05] LABS: Lactate (Lactic Acid level) 1.2 mmol/L (0.5-2.2)
--- NOTE | 2020-03-24 14:05 | ECG_ITS ---
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 Measurements Intervals [place] Rate: 64 P: 48 FL: 141 QRS: 51 QRSD: 90 T: 18 QT: 429 QTc: 445 Interpretive Statements SINUS RHYTHM WITH MARKED SINUS ARRHYTHMIA Compared to ECG 03/24/2020 13:05:29 No significant changes Electronically Signed On 03-25-2020 0:35:40 CDT by Rosaura Wick M.D. [id number]
[2020-03-24 14:17] LABS: Troponin(5th) Baseline 35 ng/L (0-15)
[2020-03-24 14:29] LABS: Creatine Phosphokinase 19538 U/L (39-308); Hepatitis A Antibody IgM Non-Reactive (Nonreactive); Hepatitis B Core AB, Total Non-Reactive (Nonreactive); Hepatitis B Surface AB 3.5 (0-8.5); Hepatitis B Surface Antigen Non-Reactive (Nonreactive); Hepatitis C Virus Antibody Non-Reactive (Nonreactive)
[2020-03-24 14:36] LABS: HIV 1 & 2 Antigen Non-Reactive (Non-Reactiv)
[2020-03-24 14:37] LABS: HIV 1 & 2 Antibody Non-Reactive (Non-Reactiv)
[2020-03-24 14:39] LABS: Erythrocyte Sedimentation Rate 34 mm/hr (0-10)
--- NOTE | 2020-03-24 15:42 | PC.NURSE ---
[facility] called to check on pt. Reviewed physical assessment, VS and labs with them. No new recommendations. will follow up tomorrow.
[2020-03-24 17:00] LABS: Troponin T (5th) Once 31 ng/L (0-15)
--- NOTE | 2020-03-24 18:38 | PC.NURSE ---
Shift summary: Pt alert and oriented. He is cooperative. He has difficulty with some understanding, needs simple explanations and needs them repeated. He has slept off and on today snoring respirations noted. He remains on 2lpm/NC, what he stated he uses at night at home when he sleeps. He remains in sinus rhythm. Has denies any nausea or dizziness all day. CIWA scores 1, [place] [address], but much improved. BUN and creatinine WNL. GFR improving. Urine dark yellow, clear and greater than 1300ml output.
[2020-03-25] VITALS (20 sets, daily range): BP systolic 96–157; BP diastolic 51–104; PULSE 53–76; RESP 4–33; TEMP 36.5–37.2; O2SAT 96–100
[2020-03-25 03:29] LABS: Basophils % 0.1 %; Eosinophils # 0.2 10^3/uL (0.0-0.8); Eosinophils % 2.7 %; Hematocrit 35.5 % (42.0-52.0); Hemoglobin 11.9 g/dL (11.7-16.6); Lymphocytes # 1.5 10^3/uL (0.8-4.8); Lymphocytes % 20.6 %; Mean Corpuscular HGB Conc 33.5 g/dL (30.0-36.0); Mean Corpuscular Hemoglobin 34.2 pg (28.0-34.0); Mean Platelet Volume 10.3 fL (7.4-10.4); Monocytes # 0.8 10^3/uL (0.2-0.9); Monocytes % 10.2 %; Neutrophils # 4.93 10^3/uL (1.8-7.7); Nucleated Red Blood Cells % 0 %; Platelet Count 160 10^3/cmm (130-400); Red Blood Count 3.48 10^6/uL (4.1-5.3); Red Cell Distribution Width 12.2 % (12.1-15.1); White Blood Count 7.5 10^3/uL (4.0-10.0)
[2020-03-25 03:49] LABS: Alanine Aminotransferase 78 U/L (0-41); Alkaline Phosphatase 86 IU/L (40-130); Anion Gap 9.7 (5-19); Aspartate Amino Transferase 225 U/L (0-40); Blood Urea Nitrogen 6 mg/dL (6-20); Calcium 7.9 mg/dL (8.5-10.5); Carbon Dioxide 24 mmol/L (22-29); Chloride 110 mmol/L (98-107); Globulin 2.5 g/dL (1.3-4.6); Glomerular Filtration Rate 87.3 mL/min (90-130); Glucose 90 mg/dL (65-115); Osmolality Calculated 285 mOsm/kg (285-295); Phosphorus 2.3 mg/dL (2.5-4.5); Potassium 3.7 mmol/L (3.5-5.1); Sodium 140 mmol/L (136-145); Total Bilirubin 0.7 mg/dL (0.15-1.2); Total Protein 5.5 g/dL (6.6-8.7)
[2020-03-25] MEDS: heparin 5,000 unit/mL INJ 1 mL 5000 UNIT SUBCUT ×3 (03:49→19:55)
[2020-03-25] MEDS: sodium chloride 0.9% 1,000 ML 125 ML IV (03:49)
[2020-03-25 04:16] LABS: Creatine Phosphokinase 11182 U/L (39-308)
--- NOTE | 2020-03-25 04:26 | PC.NURSE ---
Called to report critical CK value of 11,[address] Estrada, no new orders received.
--- NOTE | 2020-03-25 06:00 | US_ITS ---
WS: [id number] RIGHT UPPER QUADRANT ULTRASOUND HISTORY: Transaminitis. COMPARISON: None available. Liver: 16.7 cm in length. Liver is slightly enlarged. Diffuse low attenuation and coarsened echotextu re. No mass or bile duct dilatation. Gallbladder: Contracted gallbladder with mild diffuse wall thickening which is top normal at approxim ately 3 mm. No pericholecystic fluid. CBD: 0.3 cm Pancreas: Poorly visualized. Right kidney: 10.7 cm in length. No hydronephrosis or mass. No cortical thinning. Aorta and IVC: Unremarkable abdominal aorta and IVC. No ascites. US/US liver [id number] IMPRESSION: 1. Mild hepatomegaly with hepatic steatosis. 2. Contracted gallbladder. May be due to nonfasting state. No stones identifie d.
--- NOTE | 2020-03-25 07:50 | PM.PN ---
Subjective Subjective: Interval history: Chart reviewed, had 1150 mL urine output overnight, hemodynamically stable, afebrile, normalized WBC, normal electrolytes and renal function, decreasing CPK and improving LFTs. Very pleasant, no complaints. Medications: Reviewed: Yes Medication Review Details: Active Medications Generic Name Dose Route Start Last Admin Trade Name Freq PRN Reason Stop Dose Admin Folic Acid 1 mg 03/24/20 09:00 03/24/20 08:57 Folic Acid PO 1 mg DAILY MARY Administration Heparin Sodium (Be ef Lung) 5,000 unit 03/23/20 20:33 03/25/20 03:49 Heparin SUBCUT 5,000 unit Q8H MARY Administration Sodium Chloride 1,000 mls @ 125 m ls/hr 03/23/20 20:33 03/25/20 03:49 Sodium Chloride 0.9% IV 125 mls/hr .Q8H MARY Administration Lorazepam 2 mg 03/24/20 07:49 Ativan IM PROTOCOL PRN ALCOWD Protocol Lorazepam 2 mg 03/24/20 07:49 Ativan PO PROTOCOL PRN WITHDRAWAL Protocol Multivitamins Ther apeutic 1 tab 03/24/20 09:00 03/24/20 08:56 Multivitamin Tab PO 1 tab DAILY MARY Administration Nicotine 1 patch 03/24/20 09:00 03/24/20 08:57 Nicoderm 14 Mg P atch TRANSDERMA 1 patch DAILY MARY Administration Non-Formulary Medi cation 3 mg 03/23/20 21:00 03/25/20 02:15 Eszopiclone [Felicita esta] PO Not Given BEDTIME MARY Ondansetron HCl 4 mg 03/23/20 20:33 Zofran IVP Q6H PRN NAUSEA AND VOMITI NG Sodium Bicarbonate 650 mg 03/24/20 11:50 03/24/20 20:05 Sodium Bicarbona te PO 650 mg TID MARY Administration Thiamine Mononitra te 100 mg 03/25/20 09:00 Vitamin B-1 PO DAILY MARY oxytetracycline [From Terramycin] Allergy (Verified 08/21/19 12:57) Unknown Penicillins Allergy (Verified 08/21/19 12:57) Unknown Vitals/I&O/Wt Last Vital Signs Temp 97.9 F 03/25/20 04:07 Pulse 73 03/25/20 06:00 Resp 33 H 03/25/20 06:00 BP 128/77 03/25/20 06:00 Pulse Ox 99 03/25/20 06:00 03/24/20 03/25/20 03/25/20 22:59 06:59 14:59 Intake Total 1593.75 / 3053.75 966.667 / 4020.417 Output Total 575 / 1350 1950 / 3300 200 / 200 Balance 1018.75 / 1703.75 -983.333 / 720.417 -200 / -200 Weight last 48 hrs Weight 95.708 kg Physical Exam Const: COMMON NORMALS: no acute distress, patient oriented x3 and alert GENERAL APPEARANCE: cooperative, comfortable and appears older than stated age ORIENTATION/CONSCIOUSNESS: Yes awake OTHER: -Very pleasant HENMT: COMMON NORMALS: normocephalic, atraumatic, hearing grossly normal bilaterally and moist oral mucous membranes HEAD & SCALP: normocephalic and atraumatic Eye: COMMON NORMALS: Equal, round and reactive pupils present, EOMs intact bilaterally and conjunctivae normal CONJUNCTIVA: Yes conjunctivae normal PUPIL: Yes Equal, round and reactive pupils present Neck/C-Spine: COMMON NORMALS: full ROM GENERAL: Yes normal visual inspection and Yes trachea midline Resp: COMMON NORMALS: normal respiratory effort, No retractions, No use of accessory muscles and clear to auscultation bilaterally EFFORT & INSPECTION: Yes able to speak in complete sentences, Yes symmetric chest movement and No tachypneic AUSCULTATION: clear to auscultation bilaterally Cardio: COMMON NORMALS: regular rate, regular rhythm, S1 normal heart sound present, S2 normal heart sound present and No murmurs present (Cardio) RATE: regular rate RHYTHM: regular rhythm HEART SOUNDS: S1 normal heart sound present and S2 normal heart sound present GI: COMMON NORMALS: Normal to inspection, nondistended, normoactive bowel sounds present, Soft to palpation and non-tender PALPATION: Yes Soft to palpation : BLADDER/KIDNEY EXAM: Yes catheter in place Catheter type (Male): urethral Extremity: COMMON NORMALS: normal to inspection, full ROM and no clubbing, cyanosis or edema; negative for no pedal edema Neuro: COMMON NORMALS: patient oriented x3, moves all extremities, no focal motor deficits and no sensory deficits noted SENSORIUM/ORIENTATION: Yes alert Psych: COMMON NORMALS: mental status grossly normal, Normal thought process present, cooperative, normal affect and speech normal SPEECH: Yes normal speech THOUGHT PROCESS: Normal thought process present Skin: COMMON NORMALS: no rashes or lesions noted, no jaundice, no petechiae and no mottling GENERAL SKIN EXAM: no rashes or lesions noted Urinary Catheter Management^: Cheng: Cath Placed During This Visit: yes Reason for Continuing Indwelling Catheter: Accurate Measurement of Urinary Output in Critically Ill Patients Urinary Catheter Date of Insertion: 03/23/20 Urinary Catheter Time of Insertion: 19:17 Data : 03/25/20 03:13 03/25/20 03:13 A&P Assessment and plan (1) Drug overdose: -reportedly overdosed on Klonopin and possibly Zoloft as well -UDS positive for benzodiazepines -on IVF hydration -VSS; continue to monitor -telemetry monitoring -will need Psychiatric evaluation once medically stable though denies SI, intentional overdose -did not require intubation as protecting airway appropriately Status: Acute Qualifiers: Encounter type: initial encounter Injury intent: undetermined intent Qualified Code(s): T50.904A - Poisoning by unspecified drugs, medicaments and biological substances, undetermined, initial encounter (2) Fall: -fall precautions -PT evaluation today -up with assist -noted rhabdomyolysis, improving Status: Acute Qualifiers: Encounter type: initial encounter Qualified Code(s): W19.XXXA - Unspecified fall, initial encounter (3) Transaminitis: -LFTs improving -negative acute hepatitis panel -noted mild hepatomegaly with hepatic steatosis on imaging Status: Acute (4) Rhabdomyolysis: -CPK trending down -on IVF hydration -has Cheng catheter in place for accurate Is & Os, continue to monitor urine output Status: Acute Qualifiers: Rhabdomyolysis type: non-traumatic Qualified Code(s): M62.82 - Rhabdomyolysis Additional A&P Information -noted troponin elevation with no significant delta -hypocalcemia resolved; corrected Ca-8.7 -hypophosphatemia -lactic acidosis resolved (2.5->1.2) -EtOH; drinks beer, negative alcohol screen -Chronic smoker; on nicotine replacement therapy -Obesity: BMI-32 kg/m2 -cardiac diet as tolerated -DVT ppx with heparin -Dispo: home -Code status: FULL code Attestations Medical Necessity Statement*: Patient requires hospitalization for continued management of rhabdomyolysis, remains on IVF hydration. Time Spent in Patient Care: Greater than 35 minutes (>than 50% of time spent in counselling and/or direct pt care on unit). 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
[2020-03-25] MEDS: sodium bicarbonate 650 mg Tablet PO ×3 (08:54→20:00)
[2020-03-25] MEDS: multivitamin therapeutic Tablet 1 TAB PO (08:54)
[2020-03-25] MEDS: thiamine 100 mg Tablet PO (08:54)
[2020-03-25] MEDS: folic acid 1 mg Tablet PO (08:54)
[2020-03-25] MEDS: nicotine 14 mg Patch 1 PATCH TRANSDERMA (08:54)
--- NOTE | 2020-03-25 09:56 | PC.NURSE ---
Addendum entered by Beth Bill RN 03/25/20 10:00: She also stated he was not quite right in the head. Original Note: Dyan Desai, next of kin listed as contact in EMR, stated :pt has a history of taking his Klonipin incorrectly When he gets his prescription filled he will take several. He says they do not work. She also stated she was his guardian up until 1 year ago then he wanted to do it himself, so it was cancelled through social work program coordinator. He was living with her Dad up until 1 year ago, when she stopped being his guardian, he gets mad when someone tries to tell him how to take his medicine. He will take the medicine away from them and say it is his.
[2020-03-25] MEDS: sodium chloride 0.9% 1,000 ML 100 ML IV ×2 (12:59→22:14)
--- NOTE | 2020-03-25 19:08 | PC.NURSE ---
Shift Summary: No significant changes today. Pt remains cooperative. CK improved. IV fluids decreased to 100ml/hr. Pt OOB with PT today , ambulated around unit without difficulty. Urine output 1600ml clear and dark yellow.Neighbor/friend John Deras in to see pt at visiting time. Zigzag Elastic Attacher came to unit to visit with him to help determine pt's discharge needs.
--- NOTE | 2020-03-25 19:12 | PC.NURSE ---
All care given and charted by Chanda Lagunas, student nurse ( also SALES PROMOTION MANAGER) directly supervised by this nurse.
[2020-03-26] VITALS (17 sets, daily range): BP systolic 125–180; BP diastolic 71–101; PULSE 47–68; RESP 14–31; TEMP 36.5–37.1; O2SAT 94–100
[2020-03-26] MEDS: heparin 5,000 unit/mL INJ 1 mL 5000 UNIT SUBCUT ×3 (03:53→20:08)
[2020-03-26 04:30] LABS: Eosinophils # 0.2 10^3/uL (0.0-0.8); Eosinophils % 2.7 %; Hematocrit 33.2 % (42.0-52.0); Hemoglobin 11.3 g/dL (11.7-16.6); Lymphocytes # 1.3 10^3/uL (0.8-4.8); Lymphocytes % 21.5 %; Mean Corpuscular Hemoglobin 34.5 pg (28.0-34.0); Mean Corpuscular Volume 101.2 fL (80-94); Mean Platelet Volume 10.9 fL (7.4-10.4); Monocytes # 0.5 10^3/uL (0.2-0.9); Monocytes % 8.4 %; Neutrophils # 3.94 10^3/uL (1.8-7.7); Neutrophils % 66.6 %; Nucleated Red Blood Cells % 0 %; Platelet Count 153 10^3/cmm (130-400); Red Blood Count 3.28 10^6/uL (4.1-5.3); Red Cell Distribution Width 11.8 % (12.1-15.1); White Blood Count 5.9 10^3/uL (4.0-10.0)
[2020-03-26 05:07] LABS: Alanine Aminotransferase 114 U/L (0-41); Alkaline Phosphatase 83 IU/L (40-130); Anion Gap 15.3 (5-19); Aspartate Amino Transferase 171 U/L (0-40); Blood Urea Nitrogen 5 mg/dL (6-20); Calcium 7.6 mg/dL (8.5-10.5); Carbon Dioxide 21 mmol/L (22-29); Chloride 106 mmol/L (98-107); Globulin 2.6 g/dL (1.3-4.6); Glomerular Filtration Rate 139.4 mL/min (90-130); Glucose 96 mg/dL (65-115); Magnesium 1.7 mg/dL (1.7-2.3); Osmolality Calculated 284 mOsm/kg (285-295); Phosphorus 2.3 mg/dL (2.5-4.5); Potassium 3.3 mmol/L (3.5-5.1); Sodium 139 mmol/L (136-145); Total Bilirubin 0.7 mg/dL (0.15-1.2); Total Protein 5.6 g/dL (6.6-8.7)
[2020-03-26 05:26] LABS: Creatine Phosphokinase 5534 U/L (39-308)
--- NOTE | 2020-03-26 06:05 | PC.NURSE ---
Notified Dr. Barclay critical CK value [id number] sy 5:42 am
[2020-03-26] MEDS: nicotine 14 mg Patch 1 PATCH TRANSDERMA (08:47)
[2020-03-26] MEDS: sodium bicarbonate 650 mg Tablet PO ×3 (08:48→20:08)
[2020-03-26] MEDS: thiamine 100 mg Tablet PO (08:48)
[2020-03-26] MEDS: multivitamin therapeutic Tablet 1 TAB PO (08:48)
[2020-03-26] MEDS: folic acid 1 mg Tablet PO (08:48)
[2020-03-26] MEDS: sodium chloride 0.9% 1,000 ML 100 ML IV (08:49)
--- NOTE | 2020-03-26 11:23 | P.PN_ITS ---
Subjective Subjective: Interval history: Good urine output, hypertensive, otherwise hemodynamically stable, afebrile. Stable hemoglobin, slight hypokalemia, improvement in AST, slight increase in ALT. CPK continues to trend down. Will discontinue Cheng catheter. Will transfer to medical surgical floor. Noted to be bradycardic to the 40s overnight on review of telemetry though asymptomatic. Medications: Reviewed: Yes Medication Review Details: Active Medications Generic Name Dose Route Start Last Admin Trade Name Freq PRN Reason Stop Dose Admin Folic Acid 1 mg 03/24/20 09:00 03/26/20 08:48 Folic Acid PO 1 mg DAILY MARY Administration Heparin Sodium (Be ef Lung) 5,000 unit 03/23/20 20:33 03/26/20 03:53 Heparin SUBCUT 5,000 unit Q8H MARY Administration Lorazepam 2 mg 03/24/20 07:49 Ativan IM PROTOCOL PRN ALCOWD Protocol Lorazepam 2 mg 03/24/20 07:49 Ativan PO PROTOCOL PRN WITHDRAWAL Protocol Multivitamins Ther apeutic 1 tab 03/24/20 09:00 03/26/20 08:48 Multivitamin Tab PO 1 tab DAILY MARY Administration Nicotine 1 patch 03/24/20 09:00 03/26/20 08:47 Nicoderm 14 Mg P atch TRANSDERMA 1 patch DAILY MARY Administration Non-Formulary Medi cation 3 mg 03/23/20 21:00 03/25/20 23:24 Eszopiclone [Felicita esta] PO Not Given BEDTIME MARY Ondansetron HCl 4 mg 03/23/20 20:33 Zofran IVP Q6H PRN NAUSEA AND VOMITI NG Sodium Bicarbonate 650 mg 03/24/20 11:50 03/26/20 08:48 Sodium Bicarbona te PO 650 mg TID MARY Administration Thiamine Mononitra te 100 mg 03/25/20 09:00 03/26/20 08:48 Vitamin B-1 PO 100 mg DAILY MARY Administration oxytetracycline [From Terramycin] Allergy (Verified 08/21/19 12:57) Unknown Penicillins Allergy (Verified 08/21/19 12:57) Unknown Vitals/I&O/Wt Last Vital Signs Temp 98.7 F 03/26/20 08:00 Pulse 68 03/26/20 09:00 Resp 23 H 09/01/20 09:00 BP 160/94 03/26/20 08:00 Pulse Ox 98 03/26/20 09:00 03/25/20 03/26/20 03/26/20 22:59 06:59 14:59 Intake Total 2055 / 3573.000 1000 / 1000 Output Total 550 / 1600 1100 / 2700 Balance 1505 / 1973.000 -1100 / 031.980 5349 / 1000 Physical Exam Const: COMMON NORMALS: no acute distress, patient oriented x3 and alert GENERAL APPEARANCE: cooperative, comfortable and appears older than stated age ORIENTATION/CONSCIOUSNESS: Yes awake OTHER: -Very pleasant HENMT: COMMON NORMALS: normocephalic, atraumatic, hearing grossly normal bilaterally and moist oral mucous membranes HEAD & SCALP: normocephalic and atraumatic Eye: COMMON NORMALS: Equal, round and reactive pupils present, EOMs intact bilaterally and conjunctivae normal CONJUNCTIVA: Yes conjunctivae normal PUPIL: Yes Equal, round and reactive pupils present Neck/C-Spine: COMMON NORMALS: full ROM GENERAL: Yes normal visual inspection and Yes trachea midline Resp: COMMON NORMALS: normal respiratory effort, No retractions, No use of accessory muscles and clear to auscultation bilaterally EFFORT & INSPECTION: Yes able to speak in complete sentences, Yes symmetric chest movement and No tachypneic AUSCULTATION: clear to auscultation bilaterally Cardio: COMMON NORMALS: regular rate, regular rhythm, S1 normal heart sound present, S2 normal heart sound present and No murmurs present (Cardio) RATE: regular rate RHYTHM: regular rhythm HEART SOUNDS: S1 normal heart sound present and S2 normal heart sound present GI: COMMON NORMALS: Normal to inspection, nondistended, normoactive bowel sounds present, Soft to palpation and non-tender PALPATION: Yes Soft to palpation : BLADDER/KIDNEY EXAM: Yes catheter in place Extremity: COMMON NORMALS: normal to inspection, full ROM and no clubbing, cyanosis or edema; negative for no pedal edema Neuro: COMMON NORMALS: patient oriented x3, moves all extremities, no focal motor deficits and no sensory deficits noted SENSORIUM/ORIENTATION: Yes alert Psych: COMMON NORMALS: mental status grossly normal, Normal thought process present, cooperative, normal affect and speech normal SPEECH: Yes normal spe ech THOUGHT PROCESS: Normal thought process present Skin: COMMON NORMALS: no rashes or lesions noted, no jaundice, no petechiae and no mottling GENERAL SKIN EXAM: no rashes or lesions noted Urinary Catheter Management^: Cheng: Cath Placed During This Visit: yes Reason for Continuing Indwelling Catheter: Accurate Measurement of Urinary Output in Critically Ill Patients Urinary Catheter Date of Insertion: 03/23/20 Urinary Catheter Time of Insertion: 19:17 Data : 03/26/20 03:39 03/26/20 03:39 A&P Assessment and plan (1) Drug overdose: -reportedly overdosed on Klonopin and possibly Zoloft as well -UDS positive for benzodiazepines -on IVF hydration; wean with improved oral intake -VSS; continue to monitor -telemetry monitoring -denies SI, intentional overdose -did not require intubation as protecting airway appropriately Status: Acute Qualifiers: Encounter type: initial encounter Injury intent: undetermined intent Qualified Code(s): T50.904A - Poisoning by unspecified drugs, medicaments and biological substances, undetermined, initial encounter (2) Fall: -fall precautions -PT evaluation appreciated -up with assist; encourage ambulation -noted rhabdomyolysis, improving Status: Acute Qualifiers: Encounter type: initial encounter Qualified Code(s): W19.XXXA - Un specified fall, initial encounter (3) Transaminitis: -LFTs improving -negative acute hepatitis panel -noted mild hepatomegaly with hepatic steatosis on imaging Status: Acute (4) Rhabdomyolysis: -CPK trending down -on IVF hydration -has Cheng catheter in place for accurate Is & Os, continue to monitor urine output. Discontinue Cheng catheter today Status: Acute Qualifiers: Rhabdomyolysis type: non-traumatic Qualified Code(s): M62.82 - Rhabdomyolysis Additional A&P Information -noted troponin elevation with no significant delta -hypocalcemia resolved; corrected Ca-8.4 -hypophosphatemia -lactic acidosis resolved (2.5->1.2) -EtOH; drinks beer, negative alcohol screen -Chronic smoker; on nicotine replacement therapy -Obesity: BMI-32 kg/m2 -Asymptomatic bradycardia; on telemetry -cardiac diet as tolerated -DVT ppx with heparin -Dispo: home -Code status: FULL code -transfer to floor for continued care. Anticipate discharge tomorrow if continued improvement Attestations Medical Necessity Statement*: Patient requires hospitalization for continued treatment of rhabdomyolysis, on IV fluid hydration. Time Spent in Patient Care: 16 - 35 minutes (>than 50% of time spent in counselling and/or direct pt care on unit) . Coding Level of Care Code Acute Car Electronics Installer for Chg Fwd Diagnoses Drug overdose T50.904A Encounter type: initial encounter Injury intent: undetermined intent Fall W19.XXXA Encounter type: initial encounter Transaminitis R74.0 Rhabdomyolysis M62.82 Rhabdomyolysis type: non-traumatic
[2020-03-26] MEDS: lisinopril 10 mg Tablet PO (11:41)
[2020-03-26] MEDS: potassium chloride ER 10 mEq Tablet 40 MEQ PO (11:41)
[2020-03-26] MEDS: OLANZapine 10 mg TABLET 15 MG PO ×2 (11:53→17:23)
--- NOTE | 2020-03-26 13:16 | PC.NURSE ---
Pt transferred to [facility] [place] [place], room 251-2, at approximately 13:00. Report given to receiving nurse, Aleah. All questions answered. Pt transferred via wheelchair, on room air, with portable neon glass bender in place. No s/s distress. Pt verbalized understanding of plan of care and voiced no questions or concerns at time of transfer.
[2020-03-26] MEDS: sodium chloride 0.9% 1,000 ML 50 ML IV (13:25)
[2020-03-27 03:26] VITALS: BP 147/64; PULSE 59; RESP 18; TEMP 36.6; O2SAT 94
[2020-03-27 05:18] LABS: Alanine Aminotransferase 91 U/L (0-41); Alkaline Phosphatase 81 IU/L (40-130); Anion Gap 15.5 (5-19); Aspartate Amino Transferase 102 U/L (0-40); Blood Urea Nitrogen 6 mg/dL (6-20); Calcium 7.6 mg/dL (8.5-10.5); Carbon Dioxide 21 mmol/L (22-29); Chloride 105 mmol/L (98-107); Globulin 2.6 g/dL (1.3-4.6); Glomerular Filtration Rate 116.7 mL/min (90-130); Glucose 111 mg/dL (65-115); Osmolality Calculated 282 mOsm/kg (285-295); Potassium 3.5 mmol/L (3.5-5.1); Sodium 138 mmol/L (136-145); Total Bilirubin 0.6 mg/dL (0.15-1.2); Total Protein 5.6 g/dL (6.6-8.7)
[2020-03-27 05:36] LABS: Creatine Phosphokinase 2562 U/L (39-308)
[2020-03-27 08:00] VITALS: BP 157/69; PULSE 63; RESP 16; TEMP 37.3; O2SAT 93
--- NOTE | 2020-03-27 09:19 | PM.DCS ---
Discharge Providers Date of Admission: 03/24/20 13:55 Date of Discharge: March 27, 2020 Attending Provider at Admission: Renée Estrada MD Attending Provider at Discharge: Rubia Yip MD Consults: None Diagnoses at Discharge Discharge Diagnosis (1) Drug overdose: Status: Acute Problem details: -reportedly overdosed on Klonopin and possibly Zoloft as well -UDS positive for benzodiazepines -on IVF hydration; wean with improved oral intake -VSS; continue to monitor -telemetry monitoring -denies SI, intentional overdose -did not require intubation as protecting airway appropriately Qualifiers: Encounter type: initial encounter Injury intent: undetermined intent Qualified Code(s): T50.904A - Poisoning by unspecified drugs, medicaments and biological substances, undetermined, initial encounter (2) Fall: Status: Acute Problem details: -fall precautions -PT evaluation appreciated -up with assist; encourage ambulation -noted rhabdomyolysis, improving Qualifiers: Encounter type: initial encounter Qualified Code(s): W19.XXXA - Unspecified fall, initial encounter (3) Transaminitis: Status: Acute Problem details: -LFTs improving -negative acute hepatitis panel -noted mild hepatomegaly with hepatic steatosis on imaging (4) Rhabdomyolysis: Status: Acute Problem details: -CPK trending down -on IVF hydration -Cheng catheter discontinued Qualifiers: Rhabdomyolysis type: non-traumatic Qualified Code(s): M62.82 - Rhabdomyolysis Other Information Additional DC diagnoses/information: -noted troponin elevation with no significant delta -hypocalcemia resolved; corrected Ca-8.4 -hypophosphatemia; low normal Ph -lactic acidosis resolved (2.5->1.2) -EtOH; drinks beer, negative alcohol screen -Chronic smoker; on nicotine replacement therapy -Obesity: BMI-32 kg/m2 -Asymptomatic bradycardia; on telemetry Reason for Visit Reason for Visit: OVERDOSE Hospital Course Hospital Course: Patient was admitted to ICU secondary to having taken more than prescribed doses of Klonopin though not intentionally and not with intent for self-harm. Patient has some degree of underlying cognitive impairment so has simple and limited understanding. He states that his intent was to feel better. Unfortunately this has happened in the past when he took than prescribed doses of olanzapine. He follows up regularly at the behavioral health clinic where he has his antipsychotics and anxiolytics prescribed. He did not require intubation but due to significant rhabdomyolysis, is hydrated quite aggressively with IV fluids. CPK has continued to trend down, renal function has normalized and he has been voiding well consistently throughout his hospitalization. He had had a Cheng catheter placed in the ER which has since been discontinued and he has been able to void independently without difficulty. He has had some somewhat elevated blood pressure readings though this has improved with resumption of his CALLUM inhibitor; this had been held initially due to concern for hypotension and renal impairment. He was noted to have high anion gap metabolic acidosis which has also resolved, potassium and magnesium are normal, phosphorus is slightly below normal. He was noted to have transaminitis has improved as well during the course of his hospital stay. Hemoglobin has been normal and he has not required transfusion of any blood products. He will require close follow-up at the behavioral health clinic. He appears to have good social support particularly from his neighbor who has agreed to check on him more regularly and help with safer dispensation of his medications. Case management has also arranged for in-home services through [facility]. He was evaluated by physical therapy as he had had a fall prior to admission and was quite weak initially. He has been cleared for discharge home. He was initially noted to have some troponin elevation though with no significant delta and no EKG changes. This is likely secondary to demand ischemia. Discharge Summary: -Patient to follow up with primary care provider within 1 week -Patient to continue to follow up at [facility] Physical Exam Const: COMMON NORMALS: no acute distress, patient oriented x3 and alert GENERAL APPEARANCE: cooperative, comfortable and appears older than stated age ORIENTATION/CONSCIOUSNESS: Yes awake OTHER: -Very pleasant HENMT: COMMON NORMALS: normocephalic, atraumatic, hearing grossly normal bilaterally and moist oral mucous membranes HEAD & SCALP: normocephalic and atraumatic Eye: COMMON NORMALS: Equal, round and reactive pupils present, EOMs intact bilaterally and conjunctivae normal CONJUNCTIVA: Yes conjunctivae normal PUPIL: Yes Equal, round and reactive pupils present Neck/C-Spine: COMMON NORMALS: full ROM GENERAL: Yes normal visual inspection and Yes trachea midline Resp: COMMON NORMALS: normal respiratory effort, No retractions, No use of accessory muscles and clear to auscultation bilaterally EFFORT & INSPECTION: Yes able to speak in complete sentences, Yes symmetric chest movement and No tachypneic AUSCULTATION: clear to auscultation bilaterally Cardio: COMMON NORMALS: regular rate, regular rhythm, S1 normal heart sound present, S2 normal heart sound present and No murmurs present (Cardio) RATE: regular rate RHYTHM: regular rhythm HEART SOUNDS: S1 normal heart sound present and S2 normal heart sound present GI: COMMON NORMALS: Normal to inspection, nondistended, normoactive bowel sounds present, Soft to palpation and non-tender PALPATION: Yes Soft to palpation Extremity: COMMON NORMALS: normal to inspection, full ROM and no clubbing, cyanosis or edema; negative for no pedal edema Neuro: COMMON NORMALS: patient oriented x3, moves all extremities, no focal motor deficits and no sensory deficits noted SENSORIUM/ORIENTATION: Yes alert Psych: COMMON NORMALS: mental status grossly normal, Normal thought process present, cooperative, normal affect and speech normal SPEECH: Yes normal speech THOUGHT PROCESS: Normal thought process present Skin: COMMON NORMALS: no rashes or lesions noted, no jaundice, no petechiae and no mottling GENERAL SKIN EXAM: no rashes or lesions noted Urinary Catheter Management^: Cheng: Cath Placed During This Visit: yes Reason for Continuing Indwelling Catheter: Not indwelling catheter Urinary Catheter Date of Insertion: 03/23/20 Urinary Catheter Time of Insertion: 19:17 Discharge Data Data Completed and Pending: Completed Studies During Hospitalization Category Date Time Status XR chest 1V radha ble [id number] Stat Exams 03/23/20 17:10 Completed US liver [id number] Ro utine Ultrasound 03/25/20 06:00 Completed Pending at discharge Category Date Time Status Myoglobin Qualita tive Urine Routine Lab 03/26/20 16:00 Received Labs from last 24 hours 03/27/20 03/27/20 03/26/20 04:14 04:14 16:00 Sodium 138 Potassium 3.5 Chloride 105 Carbon Dioxide 21 L Anion Gap 15.5 BUN 6 Creatinine 0.7 GFR Calculation 116.7 Glucose 111 Calculated Osmolal ity 282 L Calcium 7.6 L Total Bilirubin 0.6 AST 102 H ALT 91 H Alkaline Phosphata se 81 Creatine Kinase 2562 H* Total Protein 5.6 L Albumin 3.0 L Globulin 2.6 Urine Myoglobin Pending 03/24/20 13:50 Sodium Potassium Chloride Carbon Dioxide Anion Gap BUN Creatinine GFR Calculation Glucose Calculated Osmolal ity Calcium Total Bilirubin AST ALT Alkaline Phosphata se Creatine Kinase Total Protein Albumin Globulin Urine Myoglobin Cancelled Vitals: Last Vital Signs Temp 99.1 F 03/27/20 08:00 Pulse 63 03/27/20 08:00 Resp 16 03/27/20 08:00 BP 157/69 03/27/20 08:00 Pulse Ox 93 03/27/20 08:00 Discharge Plan Discharge Patient Disposition: Home Condition: Stable Prescriptions: Continued aspirin [Aspirin Childrens] 81 mg tablet,chewable 81 mg PO DAILY RF: 0 fluticasone propionate [Flonase Allergy Relief] 50 mcg/actuation spray,suspension 2 spray INTRANASAL DAILY RF: 0 clonazepam 0.5 mg tablet 0.5 mg PO TID PRN (Reason: anxiety) Qty: 90 RF: 2 olanzapine 15 mg tablet 15 mg PO BID Qty: 60 RF: 2 ProAir HFA 90 mcg/actuation Hfa Aerosol Inhaler 2 puff INHALATION Q6H PRN (Reason: Shortness Of Breath) RF: 0 Cholesterol Med See Rx Instructions .ROUTE .COMPLEX RF: 0 Waller Inhaler See Rx Instructions .ROUTE .COMPLEX RF: 0 folic acid 1 tab PO DAILY RF: 0 lisinopril 1 tab PO DAILY RF: 0 sertraline 100 mg tablet 150 mg PO DAILY RF: 0 Lunesta 3 mg tablet 3 mg PO BEDTIME RF: 0 Discharge Orders: Discharge Order (Routine); Ordered 03/27/20 Ordered By: Rubia Yip Referrals: Amanda Rosa PMHNP [Staff Physician] - 1-3 days (Post hospital discharge follow up. ) Mamta Persaud CONCESSIONIST-C [Referring] - 4-7 days (Post hospital discharge follow up) Discharge Diet: Regular Discharge Activity: Increase activity as tolerated Discharge Attestations Time Spent in Discharge Care*: less than 30 min Specific Discharge Activities: Specific discharge activities: educating patient, educating and/or supporting family/caregiver, discussing with correctional case records supervisor/social workers/dc planners, documenting/other paperwork and evaluating patient/reviewing data Status at Discharge: Cognitive status at discharge: mildly impaired cognition (baseline cognitive deficit), Behavioral status at discharge: cooperative and independent in ADL's, Functional status at discharge: independent ambulation Overall status at discharge: patient is progressing back to baseline Quality Metrics Clinical Quality Measures During this hospital stay, did patient experience: None Coding Level of Care Code Acute Fence Machine Operator for Kinza Fwd Exam Comprehensive Diagnoses Drug overdose T50.904A Encounter type: initial encounter Injury intent: undetermined intent Fall W19.XXXA Encounter type: initial encounter Transaminitis R74.0 Rhabdomyolysis M62.82 Rhabdomyolysis type: non-traumatic
[2020-03-27] MEDS: heparin 5,000 unit/mL INJ 1 mL 5000 UNIT SUBCUT (09:25)
[2020-03-27] MEDS: nicotine 14 mg Patch 1 PATCH TRANSDERMA (09:25)
[2020-03-27] MEDS: folic acid 1 mg Tablet PO (09:26)
[2020-03-27] MEDS: sodium chloride 0.9% 1,000 ML 50 ML IV (09:26)
[2020-03-27] MEDS: thiamine 100 mg Tablet PO (09:26)
[2020-03-27] MEDS: sodium bicarbonate 650 mg Tablet PO (09:26)
[2020-03-27] MEDS: multivitamin therapeutic Tablet 1 TAB PO (09:26)
[2020-03-27] MEDS: lisinopril 10 mg Tablet PO (09:26)
[2020-03-27] MEDS: OLANZapine 10 mg TABLET 15 MG PO (11:32)
[2020-03-27 11:33] VITALS: BP 157/69; PULSE 63; RESP 16; TEMP 37.3; O2SAT 93
[2020-03-27 11:42] VITALS: BP 129/73; PULSE 66; RESP 18; TEMP 37.4; O2SAT 96
[2020-03-27 14:25] VITALS: BP 129/73; PULSE 66; RESP 18; TEMP 37.4; O2SAT 96
[2020-03-28 19:07] LABS: Myoglobin Qualitative Urine <28 mcg/L (<28)
== END 2020-03-27 13:55 | disposition home or self-care (01) | DRG 918 ==
LOC: ER 19:50 → ICU 20:45 → MEDSURG 03-26 12:56
PROVIDERS: Emergency Medicine; Family Medicine; Admitting Provider Internal Medicine; Visit Provider Family Medicine
DX: T42.4X1A Poisoning by benzodiazepines, accidental (unintentional), initial encounter (principal); E87.2 Acidosis; M62.82 Rhabdomyolysis; F10.988 Alcohol use, unspecified with other alcohol-induced disorder; N17.9 Acute kidney failure, unspecified; I24.8 Other forms of acute ischemic heart disease; I10 Essential (primary) hypertension; E78.5 Hyperlipidemia, unspecified; F20.9 Schizophrenia, unspecified; E86.0 Dehydration; K70.9 Alcoholic liver disease, unspecified; E87.6 Hypokalemia; I95.9 Hypotension, unspecified; W19.XXXA Unspecified fall, initial encounter; R16.0 Hepatomegaly, not elsewhere classified; K76.0 Fatty (change of) liver, not elsewhere classified; F17.210 Nicotine dependence, cigarettes, uncomplicated; Z79.82 Long term (current) use of aspirin; R00.1 Bradycardia, unspecified; E66.9 Obesity, unspecified; Z68.32 Body mass index [BMI] 32.0-32.9, adult; E83.51 Hypocalcemia
CPT/HCPCS: 12345; 36415; 36592; 36600; 51702; 71045; 76705; 80051; 80053; 80156; 80164; 80178; 80185; 80306; 80307; 81001; 82009; 82140; 82550; 82803; 82810; 83605; 83735; 83874; 83986; 84100; 84443; 84484; 84550; 85025; 85610; 85651; 86705; 86706; 86709; 86803; 87340; 87806; 93005; 96372; 97116; 97161; 99284; G0378; J1644; J3411; J7030

== ENCOUNTER → 2020-04-02 09:18 | Outpatient (BNVA) | payer MEDICAID, SELFPAY | PROVIDERS: Visit Provider Nurse Practitioner | DX: F20.89 Other schizophrenia (principal) | CPT/HCPCS: 99214 ==

== ENCOUNTER → 2020-05-22 08:11 | Outpatient (BNVA) | payer MEDICAID, SELFPAY | PROVIDERS: Visit Provider Nurse Practitioner | DX: F20.89 Other schizophrenia (principal); F41.1 Generalized anxiety disorder | CPT/HCPCS: 99214 ==

== ENCOUNTER → 2020-08-23 08:31 | Outpatient (BNVA) | payer MEDICAID, SELFPAY | PROVIDERS: Visit Provider Nurse Practitioner | DX: F41.1 Generalized anxiety disorder (principal); F20.89 Other schizophrenia; Z79.899 Other long term (current) drug therapy | CPT/HCPCS: 99214 ==

== ENCOUNTER → 2020-11-15 09:10 | Outpatient (BNVA) | payer MEDICAID, SELFPAY | PROVIDERS: Visit Provider Nurse Practitioner | DX: F41.1 Generalized anxiety disorder (principal); F20.89 Other schizophrenia | CPT/HCPCS: 99214 ==